=== PATIENT | male | born 1980 | race African-American/Black ===

== ENCOUNTER 2021-05-06 13:08 | Emergency (ER) | payer MEDICAID ==
[~2021-05-06] VITALS: Ht 172.7 cm; Wt 88.2 kg
--- NOTE | 2021-05-06 13:16 | NUR ---
Dr Egan at the bedside for MSE.
--- NOTE | 2021-05-06 13:23 | NUR ---
Female lens blocker accompanied patient for (DR Egan).
[2021-05-06 13:47] LABS: MEAN CORPUSCULAR HEMOGLOBIN 16.7 uug (23.8-33.4); MEAN CORPUSCULAR VOLUME 61.1 fL (73.0-96.2); PLATELET COUNT (AUTO) 732 K/uL (152-348)
[2021-05-06 13:54] LABS: BILIRUBIN,TOTAL 0.6 mg/dL (0.2-1.0); POTASSIUM 3.9 mmol/L (3.5-5.1); TOTAL PROTEIN, SERUM 7.1 g/dL (6.4-8.2)
[2021-05-06 14:12] LABS: HEMATOCRIT 10.4 % (36.7-47.1)
--- NOTE | 2021-05-06 14:14 | NUR ---
Hemoglobin of 2.8 &HCt 10.4 critical results received and Dr[address] quarles.
--- NOTE | 2021-05-06 14:20 | NUR ---
Placed a call to [facility] for transfer if pt can have Factor 9 infusion. None available.
--- NOTE | 2021-05-06 14:23 | NUR ---
placed a call to transfer pt to [facility] for factor 9 infusion, none available.
--- NOTE | 2021-05-06 14:25 | NUR ---
Called [facility] for tx, no beds available.
--- NOTE | 2021-05-06 14:28 | NUR ---
Dr Egan called [facility] for tx, they don't have Factor 9.
--- NOTE | 2021-05-06 14:30 | NUR ---
Called [facility] and spoke to Jaja BENJAMIN. Jaja stated they don't have factor 9 and it's special order for in patient, but they don't have any bed availiblity.
--- NOTE | 2021-05-06 14:42 | NUR ---
Pt signed consent for blood transfusion, placed in the chart.
--- NOTE | 2021-05-06 15:38 | NUR ---
Pt resting in bed, watching TV, awaiting for blood transfusion.
--- NOTE | 2021-05-06 16:35 | NUR ---
Please see blood bank record mfor further info.
--- NOTE | 2021-05-06 16:35 | NUR ---
Start PRBC infusion, VSS, afbrile.
[2021-05-06 17:00] LABS: LYMPHOCYTES % (MANUAL) 15 % (20-40); MONOCYTES % (MANUAL) 5 % (2-10); NEUTROPHILS % (MANUAL) 80 % (42-75)
--- NOTE | 2021-05-06 17:48 | NUR ---
continue w/ blood tx, no transfusion reaction noted, VSS. Pt resting w/ both eyes closed, NAD noted.
--- NOTE | 2021-05-06 19:05 | NUR ---
Completed 1st unit of blood transfusion, no adverse reaction noted, VSS. Hands off report given to grades 1 through 6 teacher RN.
--- NOTE | 2021-05-06 19:10 | NUR ---
RECEIVED PATIENT AWAKE , ORIENTED , AMBULATORY , IV ON RIGHT AC , 1ST UNIT OF BLOOD JUST FINISHED
--- NOTE | 2021-05-06 19:35 | NUR ---
SECOND BLOOD STARTED
--- NOTE | 2021-05-06 22:00 | NUR ---
second blood transfusion is infused with no reaction Addendum: 05/06/21 at 2255 by CTAN prbc 300 ml transfused
--- NOTE | 2021-05-06 22:05 | NUR ---
er doctor , spoke to the patient leaving against medical advice , accompanied by significant other , , awake oriented , denies distress , ambulatory , iv site removed pressure applied
[2021-05-06 23:47] VITALS: BP 131/69
== END 2021-05-06 22:15 | disposition left against medical advice (07) ==
LOC: ER 13:08
DX: K92.2 Gastrointestinal hemorrhage, unspecified (principal); D64.9 Anemia, unspecified; D67 Hereditary factor IX deficiency; Z53.29 Procedure and treatment not carried out because of patient's decision for other reasons
CPT/HCPCS: 36430; 71045; 80053; 84484; 85007; 85025; 85610; 85730; 86850; 86900; 86901; 86920 ×2; 93005; 99291; P9016 ×2; 70030-TC; A4663; J7050

== ENCOUNTER 2021-05-16 13:37 | Inpatient (IN) | payer MEDICAID ==
[~2021-05-16] VITALS: Ht 172.7 cm; Wt 88.0 kg
[2021-05-16 13:57] LABS: HEMATOCRIT 23.8 % (36.7-47.1); MEAN CORPUSCULAR HEMOGLOBIN 24.1 uug (23.8-33.4); MEAN CORPUSCULAR VOLUME 76.8 fL (73.0-96.2); PLATELET COUNT (AUTO) 363 K/uL (152-348)
--- NOTE | 2021-05-16 13:57 | NUR ---
PT IS IN ROOM #1B. DR DE LA TORRE EVALUATED THE PT.
[2021-05-16] MEDS ORDERED: MISCELLANEOUS MED XX ONE (14:00)
[2021-05-16 14:05] LABS: CREATININE 2.1 mg/dL (0.6-1.3); POTASSIUM 4.6 mmol/L (3.5-5.1)
[2021-05-16 14:11] LABS: BILIRUBIN,DIRECT 0.1 mg/dL (0.0-0.2); BILIRUBIN,TOTAL 0.4 mg/dL (0.2-1.0); TOTAL PROTEIN, SERUM 6.7 g/dL (6.4-8.2)
[2021-05-16] MEDS ORDERED: IV NORMAL SALINE 1000 ML BAG IV ONE ×2 (14:30→15:30)
[2021-05-16] MEDS ORDERED: ONDANSETRON 4 MG/2 ML VIAL ONE (14:58)
--- NOTE | 2021-05-16 16:18 | NUR ---
REPORT WAS GIVEN TO RN M/S. PT WAS TRANSFERED TO M/S ROOM #314.
[2021-05-16] MEDS ORDERED: FERR325T28 PO (16:39)
[2021-05-16] MEDS ORDERED: GABA-532 PO (16:39)
[2021-05-16] MEDS ORDERED: DOCU100C36 PO (16:39)
--- NOTE | 2021-05-16 17:00 | NUR ---
Received patient report from Luis Enrique BENJAMIN from the ER.
[2021-05-16 17:02] LABS: MEAN CORPUSCULAR HEMOGLOBIN 24.1 uug (23.8-33.4); PLATELET COUNT (AUTO) 251 K/uL (152-348)
[2021-05-16 17:18] VITALS: BP 114/62
[2021-05-16 17:31] LABS: HEMATOCRIT 20.9 % (36.7-47.1)
--- NOTE | 2021-05-16 17:53 | NUR ---
Critical Value for Hemoglobin & Hematocrit: 6.[address] Engel notified and ordered 2 units of PRBC's stat. Order placed. Lab notified. Unable to start transfusion during shift. senior nuclear medicine technologist coming in at 1830 to check antibodies. Will endorse information to PM nurse.
--- NOTE | 2021-05-16 18:02 | NUR ---
Consent for Blood Transfusion obtained
[2021-05-16] MEDS ORDERED: IV NS 1000 ML 1,000 ML IV PRN (18:15)
[2021-05-16] MEDS ORDERED: ACETAMINOPHEN 325 MG TABLET PO PRN (18:15)
[2021-05-16] MEDS ORDERED: ONDANSETRON 4 MG/2 ML VIAL IV PRN (18:15)
[2021-05-16] MEDS ORDERED: HYDROCODONE/APAP 5-325MG TABLET PO PRN (18:15)
--- NOTE | 2021-05-16 19:21 | NUR ---
Report given to CASSIDY Kramer
[2021-05-16 20:37] LABS: MEAN CORPUSCULAR HEMOGLOBIN 24.4 uug (23.8-33.4)
[2021-05-16 20:39] LABS: MEAN CORPUSCULAR VOLUME 76.8 fL (73.0-96.2); PLATELET COUNT (AUTO) 196 K/uL (152-348)
[2021-05-16 20:45] LABS: HEMATOCRIT 18.1 % (36.7-47.1)
[2021-05-16 20:47] VITALS: BP 106/54
[2021-05-16 21:10] VITALS: BP 104/53
[2021-05-16 21:40] VITALS: BP 115/63
--- NOTE | 2021-05-16 21:56 | NUR ---
Received pt awake on bed with no respiratory distress noted. He is alert and oriented x4, able to make needs known. Mild pain noted only when coughing d/t s/p hemorrhoid removal. IV line on MERE G#20 patent and intact. No s/sx if infiltration on IV site. 1st unit blood transfusion started and ongoing, no reaction noted. All needs attended. Call light placed within reach. Will continue to monitor.
[2021-05-16 22:00] VITALS: BP 121/54
[2021-05-16 22:30] VITALS: BP 128/53
[2021-05-17] VITALS (11 sets, daily range): BP systolic 113–125; BP diastolic 55–69
--- NOTE | 2021-05-17 01:10 | NUR ---
BT 1st unit PRBC done with no reaction, 2nd unit started and ongoing.
[2021-05-17] MEDS: PANTOPRAZOLE SODIUM 40 MG TABLET.DR PO SCH ×2 (06:00→06:03)
--- NOTE | 2021-05-17 06:27 | NUR ---
BT 2nd unit of PRBC done, no reaction noted. VS WNL. Pt slept intermittently throughout the night. All needs attended. Call light placed within reach. Frequent visual checks done. Will endorse to next shift for continuity of care.
[2021-05-17 06:31] LABS: HEMATOCRIT 24.2 % (36.7-47.1); MEAN CORPUSCULAR HEMOGLOBIN 26.9 uug (23.8-33.4); MEAN CORPUSCULAR VOLUME 81.2 fL (73.0-96.2); PLATELET COUNT (AUTO) 165 K/uL (152-348)
[2021-05-17 06:52] LABS: CREATININE 0.9 mg/dL (0.6-1.3); MAGNESIUM 2.2 mg/dL (1.8-2.4); PHOSPHOROUS 3.7 mg/dL (2.5-4.9); POTASSIUM 4.9 mmol/L (3.5-5.1)
[2021-05-17] MEDS: GABAPENTIN 100 MG CAPSULE PO SCH ×2 (08:10→08:14)
[2021-05-17] MEDS ORDERED: FERROUS SULFATE 325 MG TABEC PO SCH (09:00)
--- NOTE | 2021-05-17 11:12 | NUR ---
dc orders received noted and carried out,dc heplock per md orders.dc instruction and education given to the pt .pt said he will follow up with his pcp.pt left the facility via private car in stable condition
[2021-05-17 11:17] LABS: THYROID STIMULATING HORMONE 0.162 mIU/mL (0.358-3.740)
[2021-05-18 07:07] LABS: *IMMUNOGLOBULIN G, SERUM 806 mg/dL (603-1613); IMMUNOGLOBULIN A, SERUM 117 mg/dL (90-386); IMMUNOGLOBULIN M, SERUM 174 mg/dL (20-172)
[2021-05-20 13:07] LABS: A/G RATIO 1.2 (0.7-1.7); ALBUMIN 2.7 g/dL (2.9-4.4); ALPHA-1-GLOBULIN 0.3 g/dL (0.0-0.4); ALPHA-2-GLOBULIN 0.5 g/dL (0.4-1.0); BETA GLOBULIN 0.8 g/dL (0.7-1.3); GAMMA GLOBULIN 0.8 g/dL (0.4-1.8); GLOBULIN, TOTAL 2.3 g/dL (2.2-3.9); M-SPIKE Not Observed g/dL (Not Observed)
== END 2021-05-17 11:15 | disposition home or self-care (01) | DRG 253 ==
LOC: ER 13:37 → MEDSURG3 16:14 → TELE3 05-17 07:30
PROC: 0HQ1XZZ Repair Face Skin, External Approach (ICD-10-PCS; principal; 2021-05-16)
PROC: 30233N1 Transfusion of Nonautologous Red Blood Cells into Peripheral Vein, Percutaneous Approach (ICD-10-PCS; principal; 2021-05-16)
DX: K62.5 Hemorrhage of anus and rectum (principal); D67 Hereditary factor IX deficiency; N17.9 Acute kidney failure, unspecified; E88.09 Other disorders of plasma-protein metabolism, not elsewhere classified; S01.81XA Laceration without foreign body of other part of head, initial encounter; I95.9 Hypotension, unspecified; T47.4X5A Adverse effect of other laxatives, initial encounter; E86.0 Dehydration; Z20.822 Contact with and (suspected) exposure to COVID-19; Z98.890 Other specified postprocedural states; W19.XXXA Unspecified fall, initial encounter; Y93.9 Activity, unspecified; Y92.89 Other specified places as the place of occurrence of the external cause; D62 Acute posthemorrhagic anemia
CPT/HCPCS: 36415; 82747; 82784; 83550; 83735; 84100; 84155; 84165; 84443; 85014; 85025; 85730; 86334; 86850; 86870; 86900; 86901; 86920; 93005; A4663; G0378; J2405; J7030; J7040; P9016

== ENCOUNTER 2022-01-28 00:35 | Emergency (ER) | payer MEDICAID, OTHER ==
[~2022-01-28] VITALS: Ht 172.7 cm; Wt 83.9 kg
[~2022-01-28 00:35] MED LIST: DOCU100C36 PO; FERR325T28 PO; GABA-532 PO
[2022-01-28] MEDS ORDERED: ONDANSETRON ODT 4 MG TAB.RAPDIS SL ONE (01:30)
[2022-01-28] MEDS ORDERED: HYDROCODONE/APAP 10-325 MG TABLET PO ONE (01:30)
[2022-01-28] MEDS ORDERED: PENICILLIN V POTASSIUM 500 MG TABLET PO ONE (01:30)
[2022-01-28] MEDS ORDERED: TRANEXAMIC ACID 1,000 MG/10 ML VIAL ONE (01:43)
[2022-01-28] MEDS ORDERED: HYDROMORPHONE 1 MG/1 ML DISP.SYRIN IV ONE (01:45)
[2022-01-28] MEDS ORDERED: ONDANSETRON 4 MG/2 ML VIAL IV ONE (01:45)
[2022-01-28] MEDS ORDERED: PENICILLIN V POTASSIUM 500 MG TABLET ONE (01:45)
[2022-01-28] MEDS ORDERED: ONDANSETRON 4 MG/2 ML VIAL ONE (01:45)
[2022-01-28] MEDS ORDERED: HYDROMORPHONE 1 MG/1 ML DISP.SYRIN ONE (01:46)
[2022-01-28] MEDS ORDERED: PENI500T PO (02:04)
[2022-01-28] MEDS ORDERED: TRANEXAMIC ACID 1,000 MG/10 ML VIAL IR ONE (02:15)
[2022-01-28 02:18] LABS: HEMATOCRIT 50.4 % (36.7-47.1); MEAN CORPUSCULAR HEMOGLOBIN 28.6 uug (23.8-33.4); MEAN CORPUSCULAR VOLUME 85.8 fL (73.0-96.2); PLATELET COUNT (AUTO) 182 K/uL (152-348)
[2022-01-28 02:44] LABS: CREATININE 1.2 mg/dL (0.6-1.3); POTASSIUM 4.2 mmol/L (3.5-5.1)
[2022-01-28 02:50] LABS: BILIRUBIN,TOTAL 1.2 mg/dL (0.2-1.0); TOTAL PROTEIN, SERUM 7.9 g/dL (6.4-8.2)
--- NOTE | 2022-01-28 03:22 | NUR ---
Patient discharged to home in stable condition. Written and verbal after care instructions given. Patient verbalizes understanding of instructions. Stressed follow up or return to ER for worsening s/s. Patient is a/ox4, NAD noted. Patient is able to walk with steady gait.
[2022-01-28 03:26] VITALS: BP 115/67
== END 2022-01-28 03:27 | disposition home or self-care (01) ==
LOC: ER 00:41
DX: K91.840 Postprocedural hemorrhage of a digestive system organ or structure following a digestive system procedure (principal); D67 Hereditary factor IX deficiency; D64.9 Anemia, unspecified; Z88.6 Allergy status to analgesic agent; K08.89 Other specified disorders of teeth and supporting structures
CPT/HCPCS: 99284; 96374; 96375; 80053; 85025; 85730; 36415; J2405; J1170; A4663

== ENCOUNTER 2024-06-28 00:57 | Emergency (ER) | payer OTHER ==
[~2024-06-28 00:57] MED LIST changes: +PENI500T PO
== END 2024-06-28 03:12 | disposition left against medical advice (07) ==
LOC: ER 01:04
DX: R31.9 Hematuria, unspecified (principal); Z53.21 Procedure and treatment not carried out due to patient leaving prior to being seen by health care provider